=== PATIENT | male | born 2000 | race Caucasian/White ===

== ENCOUNTER 2020-11-06 19:17 | Emergency (ER) | payer OTHER ==
[2020-11-06 19:45] VITALS: BP 140/87; PULSE 100
[2020-11-06] MEDS ORDERED: Ketorolac 15 MG/ML SDV IVPUSH ONE (19:47)
[2020-11-06] MEDS ORDERED: Lactated Ringers 1,000 ML IV SCH (20:00)
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
--- NOTE | 2020-11-07 08:50 | CR ---
Right tibia and fibula: 2 views of the right tibia and fibula were obtained. Comparison: No prior tibia or fibula study is available. Comminuted fracture is identified within the distal mid one third diaphysis of the tibia. Alignment remains close to anatomic. No additional fracture or other bony abnormality is seen. Soft tissue swelling is noted. Impression: 1. Comminuted tibial diaphyseal fracture. 2. Soft tissue swelling. Diagnostic code #3
--- NOTE | 2020-11-07 08:50 | CR ---
Chest: Portable view of the chest was obtained. Comparison: Prior chest x-ray of 04/18/15. Heart size and mediastinum are normal. Lungs are clear with no acute parenchymal change. Minimal scoliosis is noted within the spine. No acute osseous abnormality is seen within the chest. Impression: 1. Nothing acute is seen on portable chest x-ray. Diagnostic code #2
== END 2020-11-07 00:10 | disposition left against medical advice (07) ==
LOC: JD.ED 19:17
DX: S82.254A Nondisplaced comminuted fracture of shaft of right tibia, initial encounter for closed fracture (principal); F10.920 Alcohol use, unspecified with intoxication, uncomplicated; Z20.822 Contact with and (suspected) exposure to COVID-19; Z72.0 Tobacco use; W22.8XXA Striking against or struck by other objects, initial encounter
CPT/HCPCS: 36415; 71045; 71045-26; 73590-26-RT; 73590-RT; 80053; 80306; 80307; 81001; 83735; 85007; 85027; 85610; 85730; 96374; 99284; 99284-25; J1885; J7120; U0002

== ENCOUNTER 2021-03-24 23:34 | Emergency (ER) | payer OTHER, SELFPAY ==
[2021-03-24 23:46] VITALS: BP 141/99; PULSE 69
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
== END 2021-03-25 00:30 ==
LOC: JD.ED 23:34
DX: F10.10 Alcohol abuse, uncomplicated (principal)
CPT/HCPCS: 99283

== ENCOUNTER 2021-04-08 12:27 | Emergency (ER) | payer OTHER, SELFPAY ==
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
[2021-04-08 15:45] VITALS: BP 128/84; PULSE 72
--- NOTE | 2021-04-09 07:35 | CT ---
CT cervical spine Technique: Multiple axial sections were obtained from above C1 inferiorly to the lower T3 level. Reconstructed sagittal and coronal images were obtained. Comparison: No prior cervical spine imaging. Findings: Mild disc space narrowing is noted at C5-6 with minimal anterior osteophytes. Other disc spaces are maintained. Vertebral body heights are maintained. Apophyseal joints are within normal limits. Visualized lung apices are clear. No bony central or bony neural foraminal stenosis is seen. No fracture or subluxation is seen. Impression: 1. Slight degenerative change at C5-6. 2. Nothing acute is appreciated on CT study of the cervical spine. Diagnostic code #2 I agree with preliminary report from [facility], finalized on 04/08/21, 3:49 PM CDT
--- NOTE | 2021-04-09 07:36 | CT ---
CT chest Technique: Multiple axial sections through the chest were obtained. Intravenous contrast was not utilized. Comparison: No prior chest CT study is available, prior chest x-ray of 11/06/20 was utilized. Findings: Mediastinum and hilar regions show no adenopathy. Thoracic aorta shows no aneurysm. No axillary adenopathy is seen. No pericardial thickening is seen. Small portion of the visualized upper abdominal structures show nothing acute. Lungs are clear with no acute parenchymal change. No pleural effusions or pneumothorax is seen. Bone window settings show scoliosis within the spine. No definite acute osseous abnormality is appreciated. Impression: 1. Slight scoliosis within the spine. 2. Nothing acute is seen on noncontrast CT study of the chest. Diagnostic code #2 I agree with preliminary report from [facility], finalized on 04/08/21, 3:46 PM CDT
--- NOTE | 2021-04-09 08:07 | CT ---
CT thoracic spine Technique: Multiple axial sections through the thoracic spine were obtained. Reconstructed coronal and sagittal images were obtained. Comparison: No prior thoracic spine imaging is available. Findings: Vertebral body heights and disc spaces are maintained. Mild scoliosis is noted. Slight Schmorl's node deformities are seen within several levels of the thoracic spine. No acute fracture or subluxation is seen. No bony central or bony neural foraminal stenosis is seen. Impression: 1. Slight Schmorl's node deformities and mild scoliosis. 2. No acute fracture or subluxation is seen. Diagnostic code #2 I agree with preliminary report from [facility], finalized on 04/08/21, 3:52 PM CDT, code 1
== END 2021-04-08 15:35 | disposition home or self-care (01) ==
LOC: JD.ED 12:27
DX: S13.4XXA Sprain of ligaments of cervical spine, initial encounter (principal); S29.012A Strain of muscle and tendon of back wall of thorax, initial encounter; S20.211A Contusion of right front wall of thorax, initial encounter; V80.018A Animal-rider injured by fall from or being thrown from other animal in noncollision accident, initial encounter; Y93.I9 Activity, other involving external motion
CPT/HCPCS: 71250; 71250-26; 72125; 72125-26; 72128; 72128-26; 99283; 99283-25